=== PATIENT | female | born 1995 | race Caucasian/White ===

== ENCOUNTER → 2020-02-26 13:40 | Outpatient (CLI) | payer OTHER, SELFPAY ==
--- NOTE | ~2020-02-26 | US_ITS ---
EXAMINATION: US transvaginal DATE: 02/26/2020 14:03 INDICATION: Pelvic pain. Endometriosis. Comparison:No prior studies for comparison. TECHNIQUE: Multiple endovaginal sonographic images of the pelvis performed. FINDINGS: The uterus measures 7.6 x 3 x 4.7 cm. The endometrial complex measures 6 mm. The right ovary measures 1.6 x 1.2 x 1.4 cm and the left ovary measures 4 x 2.1 x 2.7 cm. There are small follicles in each ovary. 2.2 cm left ovarian cyst. There is no free fluid in the pelvis. There are no abnormal masses seen on either side. IMPRESSION: 1. 2.2 cm left ovarian cyst. Reviewed, dictated and finalized at location A.
== END ==
PROVIDERS: PCP Obstetrics & Gynecology; Visit Provider Nurse Practitioner Psychiatric/Mental Health
DX: R10.2 Pelvic and perineal pain (principal); N80.3 Endometriosis of pelvic peritoneum; N83.202 Unspecified ovarian cyst, left side
CPT/HCPCS: 76830

== ENCOUNTER 2020-05-13 00:47 | Outpatient (CLI) | payer OTHER, SELFPAY ==
[2020-05-13 17:34] LABS: SARS-CoV-2 RNA PCR Negative
== END 2020-05-13 00:48 | disposition home or self-care (01) ==
LOC: ANHCOVIDDT 00:47
PROVIDERS: PCP Obstetrics & Gynecology; Visit Provider Obstetrics & Gynecology
DX: Z01.812 Encounter for preprocedural laboratory examination (principal); Z11.59 Encounter for screening for other viral diseases
CPT/HCPCS: 87635; C9803; U0003

== ENCOUNTER 2020-05-15 00:36 | Day surgery (SDC) | payer OTHER, SELFPAY ==
[2020-05-04 13:23] VITALS: BMI 26.6
[2020-05-15] VITALS (9 sets, daily range): BP systolic 113–135; BP diastolic 55–75; PULSE 59–92; RESP 12–19; TEMP 36.7–37.4; O2SAT 100
--- NOTE | 2020-05-15 07:49 | WPDANESEPPF ---
Anes - Initial Pre Proc Eval Procedure: Operation Date: 05/15/20 12:00 Proposed Procedures p Laparoscopy, Fulgeration of Endometriosis - Génesis Samano MD Date/Time: 05/15/20 07:49 Surgeon: Génesis Samano MD Pre Op Diagnosis: endometriosis, pelvic pain Patient Data Age: 24 Gender: F Height: 1.63 m Weight: 70.31 kg Allergies Allergy/AdvReac Type Severity Reaction Status Date / Time hydrocodone AdvReac Unknown N&V Verified 05/04/20 13:47 Home Medications Medication Instructions Recorded Confirmed Type Daily Multi-Vitamin 05/04/20 History digestive 8-L.acidoph-pectin tablet PO 05/04/20 History [Digestive Enzyme (acidoph,pec)] levalbuterol tartrate [Xopenex HFA] INHALATION 05/04/20 History pantoprazole 20 mg PO HS 05/04/20 05/04/20 History Patient hx anesthesia problems: post op nausea/vomiting Family hx anesthesia problems: none PMFSH Past Medical History Medical History (Updated 05/15/20 @ 07:50 by Sunil Thorpe MD) Abnormal uterine bleeding Asthma Endometriosis PUD (peptic ulcer disease) Social History Social History Gender identity (if verbalized by the patient): Female Anes - Eval Final PreProcedure Day of Procedure 05/15/20 07:49 Patient weight: overweight Heart: regular rate and rhythm Lungs: clear to auscultation and normal air movement Airway: Mallampati scale class II Neurological: alert and oriented Last oral intake: >/= 8 hours ASA classification: II Emergent: no Anesthetic plan: proceed Anesthesia type and monitoring: general ETT Informed Consent: The patient's anesthetic plan and its attendant risks and benefits were discussed with the patient/family/POA. Questions were solicited and answers provided to the satisfaction of the patient/family/POA.
[2020-05-15] MEDS: LACTATED RINGERS 1,000 ML 30 ML IV CONT ×2 (10:30→13:50)
[2020-05-15] MEDS: SCOPOLAMINE 1.5 MG PATCH TRANSDERM (11:00)
--- NOTE | 2020-05-15 12:11 | WPDHPUPDATE1 ---
History and Physical Update Update Date/Time: 05/15/20 12:11 History and Physical has been reviewed, including an updated exam of the patient. There are NO changes in the patient's condition. Risks, benefits, and alternatives have been discussed and questions answered. Patient agrees to proceed with procedure. Plan is for diagnostic laparoscopy and fulguration or excision of endometriosis
[2020-05-15] MEDS: BUPIVACAINE/EPINEPHRINE 0.5% 10 ML VIAL INFILTRATE (12:45)
[2020-05-15] MEDS: KETOROLAC 30 MG/ML VIAL (*BKC) 15 MG IV PUSH (13:39)
--- NOTE | 2020-05-15 13:45 | P.OP_ITS ---
Procedure Note - Detailed Date of procedure: 05/15/20 Pre-op diagnosis: endometriosis, pelvic pain Post-op diagnosis: other (endometriosis, bilateral ovarian cysts) Procedure performed: Laparoscopic fulguration of endometriosis of pelvic peritoneum, right ovarian cystectomy, left ovarian cystotomy Description of procedure: The patient was taken to the operating room where general anesthesia was found to be adequate. She was then prepared and draped in the dorsal lithotomy position in [facility]. A morin catheter was inserted. Speculum used to visualize the cervix and single toothed tenaculum placed on the anterior lip. Uterine manipulator placed and affixed to the tenaculum. Attention then turned to the umbilicus which was injected with 0.5% marcaine with epinephrine, incised with a scalpel, hemostat used to dissect the sub cutaneous tissue beneath and veres needle used for intraperitoneal entry. Pressure upon entry was -1 mmHg. Saline drop test positive. Insufflated to 14mmHg but abdomen did not appear to inflate as there was no tympany. So kochers used to grasp the fascia and elevate and a scalpel was used to enter. The 5mm Port then placed with optical entry into the incision and the peritoneal cavity was then inflated to 14mmHg. It was apparent insufflation was initially into the subcutaneous fat. She was then placed in Trendelenburg and the bowels were allow to fall cephalad. A suprapubic port was then inserted by injecting the skin with 0.5% marcaine with epinephrine, incised with a scalpel and 5mm port placed with direct visualization. The uterus was elevated. Bilateral ovaries appeared to have cysts. The right ovary with an enlarged cyst, the left with reddish appearing firm smaller cysts x3. The peritoneal tissue over the bladder had a small area of endometriosis noted. in the posterior culdesac, a small area on the right uterosacral ligament was noted. Both were cauterized with scissors. A small lesion noted behind the ovary near the ureter and vessels in right pelvic side wall but since proximity to urethers there, left alone as it was very small. A small amount of serosanguanous fluid noted in posterior culdesac within the peritoneum. I then placed a left lower quadrant port by injecting the skin with lidocaine, incising with a scalpel and placeing the 5mm port with direct visualization. Scissors on cautery and [place] graspers used to excise the right ovarian cyst. Images taken. The ovarian tissue was cauterized after removal to ensure hemostasis The left ovary cysts were simply drilled to release the straw colored fluid within x3 cysts. The procedure at this point was completed. The right ovarian cyst and cyst wall tissue was sent to pathology. The pelvis was irrigated and all surgical sites hemostatic. The pneumoperitneum was released and 5mm ports removed. The skin was closed with 4-0 monocryl. Sterile dressings placed over the top. The morin was then removed and the tenaculum removed from the cervix. Tenaculum sites were hemostatic. The procedure was complete. All sponge lap and needle counts were correct. Anesthesia: GETA Surgeon: Génesis Samano MD Estimated blood loss (mL): 10 Drains: No Packing: No Pathology: yes (right ovarian cyst and cyst wall) Complications: No immediate complications Condition: stable Disposition: PACU Findings: endometriosis on uterosacral ligament on right and on perintoneum over bladder
== END 2020-05-15 16:03 | disposition home or self-care (01) ==
PROVIDERS: PCP Obstetrics & Gynecology; Visit Provider Obstetrics & Gynecology
PROC: (CPT 49320; principal; 2020-05-15 12:00)
DX: N80.3 Endometriosis of pelvic peritoneum (principal); N83.11 Corpus luteum cyst of right ovary; N83.202 Unspecified ovarian cyst, left side; J45.909 Unspecified asthma, uncomplicated; K27.9 Peptic ulcer, site unspecified, unspecified as acute or chronic, without hemorrhage or perforation
CPT/HCPCS: 58662; 88305; A9270; J0131; J1885; J2250; J2405; J2704; J2710; J3010; J7030; J7120